=== PATIENT | female | born 1985 | race Caucasian/White ===

== ENCOUNTER 2020-04-16 15:30 | Outpatient (CLI) | payer OTHER ==
[2020-04-16 16:30] VITALS: BP 125/74
[2020-04-16] MEDS ORDERED: LACTATED RINGERS 1,000 ML IV SCH (17:00)
[2020-04-16 17:05] LABS: Bilirubin,Urine NEG (Negative); Blood,Urine NEG (Negative); Color,Urine Colorless (Yellow); Protein,Urine <15 mg/dL mg/dL (Negative); Urobilinogen,Urine < 2.0 mg/dL (<2.0); WBC,Urine < 1.0 /HPF (0.0-6.0)
[2020-04-16 17:09] LABS: RBC,Urine < 1.0 /HPF (0.0-6.0)
== END 2020-04-16 17:27 | disposition home or self-care (01) ==
LOC: TRG 15:30 → APU 15:32 → TRG 17:27
PROVIDERS: ATTEND Obstetrics & Gynecology
DX: O46.8X2 Other antepartum hemorrhage, second trimester (principal); Z3A.20 20 weeks gestation of pregnancy
CPT/HCPCS: 59025; 81001

== ENCOUNTER 2020-08-15 09:56 | Inpatient (IN) | payer OTHER ==
[2020-08-15] MEDS ORDERED: ONDANSETRON 4 MG/2 ML INJ ONE (10:18)
[2020-08-15] MEDS ORDERED: BUPIVACAINE/PF (0.5%) 5 MG/1 ML 30 ML VIAL INFILTRATI ONE (10:18)
[2020-08-15] MEDS ORDERED: dexAMETHasone 20 MG/5 ML VIAL ONE (10:18)
[2020-08-15] MEDS ORDERED: KETOROLAC 30 MG/1 ML INJ ONE (10:18)
[2020-08-15] MEDS ORDERED: LACTATED RINGERS 1,000 ML ONE ×3 (10:22→13:11)
[2020-08-15] MEDS ORDERED: FAMOTIDINE 20 MG/2 ML INJ IV NR (10:37)
[2020-08-15] MEDS ORDERED: METOCLOPRAMIDE 10 MG/2 ML INJ IV NR (10:37)
[2020-08-15] MEDS ORDERED: BICITRA ORAL LIQD 30ML PO NR (10:37)
--- NOTE | 2020-08-15 10:38 | Anesthesia Day of Surgery ---
Anesthesia Day of Surgery - Day of Surgery Patient Examined: Yes Patient H&P Reviewed: Yes Patient is NPO: Yes Beta Blockers: No Cardiac Clearance: No Pulmonary Clearance: No Cliff's Test: N/A
[2020-08-15] MEDS ORDERED: NALOXONE 0.4 MG/1 ML INJ IV PRN ×2 (10:39→11:15)
[2020-08-15] MEDS ORDERED: diphenhydrAMINE 50 MG/ML VIAL IV PRN (10:39)
[2020-08-15] MEDS ORDERED: NalbUPHINE 10 MG/1 ML INJ IV PRN (10:39)
[2020-08-15] MEDS ORDERED: HYDROmorphone 1 MG/1 ML INJ IV PRN (10:39)
--- NOTE | 2020-08-15 10:39 | Anesthesia Consultation ---
Anesthesia Consult and Med Hx Date of service: 08/15/20 - Airway Anesthetic Teeth Evaluation: Good ROM Head & Neck: Adequate Mental/Hyoid Distance: Adequate Mallampati Class: Class II Intubation Access Assessment: Probably Good - Pulmonary Exam CTA: Yes - Cardiac Exam Cardiac Exam: RRR - Pre-Operative Health Status ASA Pre-Surgery Classification: ASA2 Proposed Anesthetic Plan: Spinal Nerve Block: TAP - Pulmonary Hx Smoking: No Hx Asthma: No COPD: No Hx Pneumonia: No Hx Sleep Apnea: No - Cardiovascular System Hx Hypertension: No Hx Heart Attack/AMI: No Hx Angina: No - Central Nervous System Hx Seizures: No Hx Psychiatric Problems: No - Gastrointestinal Hx Gastroesophageal Reflux Disease: No - Endocrine Hx Renal Disease: No Hx End Stage Renal Disease: No Hx Insulin Dependent Diabetes: No Hx Non-Insulin Dependent Diabetes: No Hx Hypothyroidism: No Hx Hyperthyroidism: No - Hematic Hx Anemia: No Hx Sickle Cell Disease: No - Other Systems Hx Alcohol Use: No
[2020-08-15] MEDS ORDERED: LACTATED RINGERS 1,000 ML IV SCH (10:45)
[2020-08-15 10:55] LABS: Hematocrit 34.9 % (30.3-42.9); Mean Corpuscular HGB Conc 31 % (30-34); Mean Corpuscular Volume 74 fl (79-97); Platelet Count 247 K/mm3 (140-440); Red Blood Count 4.72 M/mm3 (3.65-5.03)
[2020-08-15] MEDS ORDERED: PROMETHAZINE 25 MG RECT SUPP PR PRN (11:00)
[2020-08-15] MEDS ORDERED: PROMETHAZINE 25 MG TAB PO PRN (11:00)
[2020-08-15] MEDS ORDERED: OXYTOCIN DRIP 30 UNITS/500 ML BAG IV SCH ×2 (11:00→12:00)
[2020-08-15] MEDS ORDERED: ONDANSETRON 4 MG/2 ML INJ IV PRN ×3 (11:00→16:22)
[2020-08-15] MEDS ORDERED: ceFAZolin/Water 2 GM/20 ML 2 GM/20 ML SYRINGE IV NR (11:00)
--- NOTE | 2020-08-15 11:10 | History and Physical Report ---
History of Present Illness Date of examination: 08/15/20 Date of admission: 08/15/20 09:56 Chief complaint: Scheduled History of present illness: 34y/o @ 38+1 weeks presents for a repeat delivery. The patient has had 2 prior cesareans. She initiated care late in at 18 weeks ega. Her course is complicated by IUGR, anemia, and glucose intolerance. Recommended by MFM to proceed with delivery. Past History Past Medical History: no pertinent history Past Surgical History: section Social history: - Obstetrical History Expected Date of Delivery: 08/28/20 Actual Gestation: 38 Week(s) 1 Day(s) : 3 Para: 2 Hx # Term Pregnancies: 2 Number of Pregnancies: 0 Spontaneous Abortions: 0 Induced : 0 Number of Living Children: 2 Medications and Allergies Allergies Allergy/AdvReac Type Severity Reaction Status Date / Time No Known Allergies Allergy Verified 04/16/20 15:55 Home Medications Medication Instructions Recorded Confirmed Last Taken Type No Known Home Medications [No 08/14/20 08/14/20 Unknown History Reported Home Medications] Active Meds: Active Medications Citric Acid/Sodium Citrate (Bicitra Oral Liqd 30ml) 30 ml PO ONCE NR Stop: 08/15/20 13:00 Diphenhydramine HCl (Diphenhydramine 50 Mg/Ml Vial) 12.5 mg IV Q2H PRN PRN Reason: Itching Famotidine (Famotidine 20 Mg/2 Ml Inj) 20 mg IV ONCE NR Stop: 08/15/20 20:00 Hydromorphone HCl (Hydromorphone 1 Mg/1 Ml Inj) 0.5 mg IV Q4H PRN PRN Reason: breakthrough pain > 7/10 Lactated Ringer's (Lactated Ringers) 1,000 mls @ 2,250 mls/hr IV PREOP LUISA Stop: 08/16/20 11:12 Oxytocin/Sodium Chloride (Pitocin/Ns 30 Unit/500ml) 30 units in 500 mls @ 0 mls/hr IV TITR LUISA; Protocol Cefazolin Sodium (Ancef/Sterile Water 2 Gm/20 Ml) 2 gm in 20 mls @ 80 mls/hr IV PREOP NR; Protocol Stop: 08/15/20 20:00 Metoclopramide HCl (Metoclopramide 10 Mg/2 Ml Inj) 10 mg IV ONCE NR Stop: 08/15/20 13:00 Nalbuphine HCl (Nalbuphine 10 Mg/1 Ml Inj) 2.5 mg IV Q2H PRN PRN Reason: Itching Naloxone HCl (Naloxone 0.4 Mg/1 Ml Inj) 0.2 mg IV Q2MIN PRN PRN Reason: Res Rate </= 8 or 02 SAT < 92% Ondansetron HCl (Ondansetron 4 Mg/2 Ml Inj) 4 mg IV Q8H PRN PRN Reason: Nausea And Vomiting Promethazine HCl (Promethazine 25 Mg Tab) 25 mg PO Q6H PRN PRN Reason: Nausea And Vomiting Promethazine HCl (Promethazine 25 Mg Rect Supp) 25 mg AL Q6H PRN PRN Reason: Nausea And Vomiting Review of Systems All systems: negative Genitourinary: no leakage of fluid, no contractions - Vital Signs Vital signs: Vital Signs Pulse BP 96 H 122/84 08/15/20 10:31 08/15/20 10:31 Temp Pulse Resp BP Pulse Ox 96 H 122/84 08/15/20 10:31 08/15/20 10:31 - Physical Exam Breasts: Positive: deferred Cardiovascular: Regular rate Lungs: Positive: Clear to auscultation Abdomen: Positive: normal appearance Results All other labs normal. Assessment and Plan - Patient Problems (1) Previous delivery affecting Current Visit: Yes Status: Acute Plan to address problem: proceed with repeat delivery
[2020-08-15] MEDS ORDERED: LANOLIN/ZINC/DIMETHICONE (LANSINOH) 7 GM TP PRN (11:15)
[2020-08-15] MEDS ORDERED: MORPHINE 4 MG/1 ML INJ IV PRN (11:15)
[2020-08-15] MEDS ORDERED: KETOROLAC 30 MG/1 ML INJ IV PRN (11:15)
[2020-08-15] MEDS ORDERED: ACETAMINOPHEN 325 MG TAB PO PRN (11:30)
[2020-08-15] MEDS ORDERED: IBUPROFEN 600 MG TAB PO PRN (11:30)
[2020-08-15] MEDS ORDERED: WITCH HAZEL/ GLYCERIN PAD TP PRN (11:30)
[2020-08-15 11:42] LABS: Red Cell Distribution Width 33.5 % (13.2-15.2)
[2020-08-15] MEDS ORDERED: ceFAZolin/STERILE WATER 2 GM/20 ML SYRINGE IV ONE (12:15)
[2020-08-15] MEDS ORDERED: SODIUM CHLORIDE 0.9% IRR 1,500 ML BOTTLE IR ONE (12:18)
[2020-08-15] MEDS ORDERED: WATER FOR IRRIG STERILE 1,500 ML BOTTLE IR ONE (12:18)
[2020-08-15] MEDS ORDERED: LIDOCAINE MPF (2%) 20 MG/1 ML VIAL 5 ML ONE (12:29)
--- NOTE | 2020-08-15 12:44 | Progress Note ---
Spinal Anesthesia Block - Spinal Anesthesia Block Start Time: 12:10 Stop Time: 12:20 Performed by:: CHAO SHARP (Suzan Arellano DEVANTE) Procedure: Spinal anesthesia block is being performed for [C/S]. H&P, labs have been reviewed. Patient's questions and concerns have been answered. Informed consent has been performed. Timeout has was performed. Patient in sitting position on side of bed. Sterile prep and drape was performed. 3 mL 1% lidoc milton skin wheal at L [3]-L [4]. Needle introducer advanced. 25-gauge spinal needle advanced, [+] CSF [-] blood. [Marcaine 10.5mg and Precedex 5mcg] Spinal dose was given. All needles removed. Patient tolerated procedure well.
[2020-08-15] MEDS ORDERED: PHENYLEPHRINE/NS 1,000 MCG/10 ML SYRINGE (OR USE) IV ONE (13:01)
--- NOTE | 2020-08-15 13:13 | Procedure Note ---
OB Delivery Note - Delivery Date of Delivery: 08/15/20 Surgeon: JAZMINE DOS SANTOS Estimated blood loss: other - Section Preop diagnosis: repeat Postop diagnosis: same section procedure: section, repeat low transverse Disposition: PACU Complications: none - A at 1 minute: 8 at 5 minutes: 9 Gender: Male (Weight 5 pounds 12 ounces)
--- NOTE | 2020-08-15 13:15 | Operative Report ---
Operative Report Operative Report: Date of surgery: August 15, 2020 Preoperative diagnosis: at 38+1 weeks; previous delivery; i ntrauterine growth restriction Postoperative diagnosis: Same as above Procedure: Repeat low transverse delivery Surgeon: Anahi Godfrey M.D. Anesthesia: Regional Estimated blood loss: 400 mL IV fluids: 1400 mL Urine output: 200 mL Findings: Liveborn male with Apgars of 8 and 9 weight 5 pounds 12 ounces Indications: 34-year-old -0-0-2 at 38+1 weeks who presents for a scheduled repeat delivery secondary to intrauterine growth restriction Procedure: The patient was taken to the operating room and given regional anesthesia without complication. She was prepped and draped in a normal sterile fashion. A Pfannenstiel skin incision was made down to layer the fascia which was nicked in the midline extended laterally with the Bovie cautery. The superior aspect of the rectus fascia was grasped with [place] clamps x2 and the rectus muscles off sharply. This was done in inferior fashion as well. The rectus muscle midline and peritoneum entered bluntly. An Scott retractor was then inserted. A bladder blade was placed. The vesicouterine peritoneum was then entered sharply with Metzenbaum scissors. A bladder flap was created digitally. A low transverse uterine incision was then made and extended digitally. There was clear fluid upon entry into the uterine cavity. The head was delivered through the incision with fundal pressure. The cord was clamped and cut x2 and infant was passed off to pediatrics. The placenta was then manually extracted. The uterus was then exteriorized and cleared of clots and debris. The uterine incision was then closed in a running locked fashion with 0 Vicryl additional imbricating stitch was applied for 2 layer closure. The posterior cul-de-sac was then copiously irrigated. The uterus was replaced back into the abdomen and pelvis were the gutters were then irrigated. The Scott retractor was then removed. The peritoneum was then reapproximated with 3-0 Vicryl incorporating the rectus muscle. The fascia was then closed with 0 Vicryl in a running fashion. The skin was then reapproximated with 3-0 Monocryl on a Harsh needle subcuticular fashion. Steri-Strips to place across the incision and a Crede procedures performed at the end of the surgery. A pressure dressing was applied to the incision. The surgery productive of a liveborn male infant with Apgars of 8 and 9 weight 5 pounds 12 ounces. The patient was taken to the recovery room in stable condition. All sponge laps and needle counts correct x2.
--- NOTE | 2020-08-15 13:55 | Progress Note ---
Regional Anesthesia Block - Regional Anesthesia Block Start Time: 13:25 Stop Time: 13:35 Performed By:: CHAO SHARP (Suzan LOW) Procedure: Patient consented for TAP block for post surgical pain management. Patient identified, monitors placed, and time out performed. Mid axillary TAP identified bilaterally via ultrasound. Skin prepped bilaterally with [chlorhexidine] and [20g stimuplex] needle advanced to the TAP. 35ml [Marcaine 0.25% with 25mcg Precedex and Decadron 5mg] injected under ultrasound guidance on the [left] side. 35ml [Marcaine 0.25% with 25mcg Precedex and Decadron 5mg] injected under ultrasound guidance on the [right] side.
[2020-08-15 15:14] LABS: Anisocytosis 3+; Hypochromasia 1+; Total Cells Counted 100
[2020-08-15 15:15] LABS: Platelet Estimate Consistent w Auto
[2020-08-15] MEDS ORDERED: SODIUM CHLORIDE 0.9% 1000 ML 1,000 ML IV ONE (17:33)
[2020-08-15 19:11] LABS: Hematocrit 28.3 % (30.3-42.9); Hemoglobin 9.1 gm/dl (10.1-14.3)
[2020-08-15] MEDS: oxyCODONE /ACETAMINOPHEN 5-325MG TAB PO PRN (21:43)
[2020-08-15 22:59] LABS: Hematocrit 27.2 % (30.3-42.9); Hemoglobin 8.9 gm/dl (10.1-14.3)
--- NOTE | 2020-08-16 08:32 | Progress Note ---
Assessment and Plan A: POD1 s/p rLTCS Vital signs stable Acute anemia due to blood loss No flatus P: Bowel regimen Ferrous sulfate supplementation Subjective - Subjective Date of service: 08/16/20 Principal diagnosis: s/p LTCS Interval history: POD1 s/p repeat LTCS Patient reports: appetite normal, voiding normally, pain well controlled, ambulating normally, no flatus : doing well, nursing well Objective - Vital Signs Latest vital signs: Vital Signs Temp Pulse Resp BP BP BP Pulse Ox 08/16/20 05:08 98 F 74 18 104/78 08/16/20 00:10 98 F 74 16 108/77 08/15/20 21:08 97.0 F L 80 18 107/62 96 08/15/20 18:46 77 95/64 08/15/20 17:56 88 97/54 08/15/20 16:53 85 16 69/35 71/35 08/15/20 15:30 97.5 F L 75 16 119/69 08/15/20 14:30 98.1 F 74 15 120/78 97 08/15/20 14:15 76 16 123/74 97 08/15/20 14:00 70 14 127/73 97 08/15/20 13:45 72 13 120/80 97 08/15/20 13:30 76 14 123/76 97 08/15/20 13:25 88 24 102/63 97 08/15/20 13:20 90 17 115/65 97 08/15/20 13:19 97.2 F L 95 H 17 112/45 97 08/15/20 10:41 98.5 F 96 H 16 122/84 08/15/20 10:31 96 H 122/84 Intake and Output 08/15/20 08/16/20 08/16/20 23:59 07:59 15:59 Intake Total 241 620 Output Total 1200 1200 Balance -959 -580 Intake: Oral 240 120 Intake, Free Water 1 500 Output: Urine 1200 1200 Indwelling Catheter 1200 800 Uretheral ([place]ar[place]za) 400 Other: Total, Intake Amount 240 120 Total, Output Amount 600 400 # Voids Indwelling Catheter 1 - Exam Abdomen: Present: soft. Absent: distention, tenderness, guarding Uterus: Present: firm, fundal height below umbilicus. Absent: bogginess, tenderness Extremities: Present: normal Incision: Present: dressed - Labs Labs: Abnormal lab results 08/15/20 08/15/20 08/15/20 Range/Units 10:15 18:55 22:27 WBC 11.4 H (4.5-11.0) K/mm3 Hgb 9.1 L 8.9 L (10.1-14.3) gm/dl Hct 28.3 L D 27.2 L (30.3-42.9) % MCV 74 L (79-97) fl MCH 23 L (28-32) pg RDW 33.5 H (13.2-15.2) %
[2020-08-16] MEDS ORDERED: MAGNESIUM HYDROXIDE (MOM) ORAL LIQD UDC PO PRN ×2 (09:00→12:00)
[2020-08-16] MEDS: oxyCODONE /ACETAMINOPHEN 5-325MG TAB PO PRN ×2 (11:02→20:28)
--- NOTE | 2020-08-16 18:18 | Post Anesthesia Evaluation ---
- Post Anesthesia Evaluation Patient Participated: Yes Airway Patent: Yes Stable Respiratory Function: Yes Nausea/Vomiting: No Temp > 96.8F: Yes Pain Manageable: Yes Adequeate Hydration: Yes Anesthesia Complications: No Block Receding Appropriately: Yes
[2020-08-17 08:54] VITALS: BP 124/82
--- NOTE | 2020-08-17 12:49 | Progress Note ---
Assessment and Plan - Patient Problems (1) Previous delivery affecting Current Visit: Yes Status: Acute Plan to address problem: patient doing well discharge home Subjective - Subjective Date of service: 08/17/20 Principal diagnosis: s/p LTCS Interval history: Patient without complaints. Tolerating regular diet. Pain well controlled Patient reports: appetite normal, voiding normally, pain well controlled Ringle: doing well Objective - Vital Signs Latest vital signs: Vital Signs Temp Pulse Resp BP BP Pulse Ox 08/17/20 08:20 98.0 F 93 H 18 124/82 98 08/17/20 01:03 97.8 F 99 H 18 111/73 96 08/16/20 20:28 18 08/16/20 17:00 97.8 F 91 H 18 103/68 96 Intake and Output 08/16/20 08/17/20 08/17/20 22:59 06:59 14:59 Intake Total 240 540 Output Total 600 Balance -360 540 Intake: Oral 200 Intake, Free Water 240 340 Output: Urine 600 Void 600 Other: Total, Intake Amount 200 Total, Output Amount 600 # Voids Void 1 1 - Exam Lungs: Present: Clear to auscultation Abdomen: Present: normal appearance
--- NOTE | 2020-08-17 12:50 | Discharge Summary ---
Providers - Providers Date of Admission: 08/15/20 09:56 Date of discharge: 08/17/20 Attending physician: JAZMINE DOS SANTOS Primary care physician: JAZMINE DOS SANTOS Hospitalization Reason for admission: section Delivery: Procedure: section, repeat low transverse Discharge diagnosis: IUP at term delivered Hospital course: Patient admitted for scheduled secondary to IUGR. See op note. Postop uncomplicated Condition at discharge: Good Disposition: [id number]-01 TO HOME OR SELFCARE - Discharge Diagnoses (1) Previous delivery affecting Status: Acute Plan - Discharge Medications Prescriptions: Ibuprofen [Motrin] 800 mg PO Q8HR PRN #60 tablet PRN Reason: Pain , Severe (7-10) oxyCODONE /ACETAMINOPHEN [Percocet 5/325] 1 tab PO Q6HR PRN #30 tablet PRN Reason: Pain - Provider Discharge Summary Activity: no sex for 6 weeks, no heavy lifting 4 weeks, no strenuous exercise Diet: routine Instructions: routine Additional instructions: [] Smoking cessation referral if applicable(refer to patient education folder for contact #) [] Refer to [facility] Booklet Call your doctor immediately for: * Fever > 100.5 * Heavy vaginal bleeding ( >1 pad per hour) * Severe persistent headache * Shortness of breath * Reddened, hot, painful area to leg or breast * Drainage or odor from incision. * Keep incision clean and dry at all times and follow doctor's instructions regarding bathing/showering schedule followup in 2 weeks - Follow up plan
[2020-08-17] MEDS: oxyCODONE /ACETAMINOPHEN 5-325MG TAB PO PRN (14:06)
== END 2020-08-17 15:00 | disposition home or self-care (01) | DRG 787 ==
LOC: APU 09:56 → OB 14:49
PROVIDERS: ADMIT Obstetrics & Gynecology; ATTEND Obstetrics & Gynecology
PROC: 10D00Z1 Extraction of Products of Conception, Low, Open Approach (ICD-10-PCS; principal; 2020-08-15)
PROC: 3E0T3BZ Introduction of Anesthetic Agent into Peripheral Nerves and Plexi, Percutaneous Approach (ICD-10-PCS; 2020-08-15)
DX: O34.211 Maternal care for low transverse scar from previous cesarean delivery (principal); D62 Acute posthemorrhagic anemia; O36.5930 Maternal care for other known or suspected poor fetal growth, third trimester, not applicable or unspecified; Z37.0 Single live birth; Z3A.38 38 weeks gestation of pregnancy; Z20.822 Contact with and (suspected) exposure to COVID-19
CPT/HCPCS: 36415; 76816; 85007; 85014; 85018; 85025; 86592; 86850; 86900; 86901; G0378; A6250; J0690; J1100; J1885; J2370; J2405; J2765; J3490; J7030; J7120; U0003